=== PATIENT | female | born 1960 | race Caucasian/White ===

== ENCOUNTER 2021-09-23 15:10 | Emergency (ER) | payer BC ==
[2021-09-23] MEDS ORDERED: SODIUM CHLORIDE 1,000 ML IV STA (15:30)
[2021-09-23] MEDS ORDERED: ACETAMINOPHEN 1000 MG/100 ML BAG IVPB ONE (15:30)
[2021-09-23] MEDS ORDERED: METOCLOPRAMIDE HCL INJECTION 10 MG/2 ML VIAL IVPB ONE (15:30)
[2021-09-23 15:35] VITALS: BMI 26.1
[2021-09-23] MEDS ORDERED: METOCLOPRAMIDE HCL INJECTION 10 MG/2 ML VIAL ONE (15:53)
[2021-09-23] MEDS ORDERED: ACETAMINOPHEN INJECTION 100 ML IVPB ONE (15:54)
[2021-09-23 16:25] LABS: ALBUMIN 3.9 g/dl (3.4-5.0); BILIRUBIN,TOTAL 0.8 mg/dl (0.2-1); CALCIUM 9.6 mg/dl (8.5-10); CREATININE 0.6 mg/dl (0.55-1.3); TOT PROT 6.6 g/dl (6.4-8.2)
[2021-09-23 16:26] LABS: HEMOGLOBIN 13.2 G/dL (10.7-15.3); MCH 29.1 pg (25.7-33.7); MCHC 33.9 g/dl (32.0-36.0); MEAN PLT VOLUME 8.4 fl (7.5-11.1); RBC 4.54 10^6/uL (3.60-5.2); RDW 14.7 % (11.6-15.6); WHITE BLOOD COUNT 9.3 10^3/uL (4.0-10.8)
[2021-09-23 16:32] LABS: PLATELET ESTIMATE ADEQUATE
[2021-09-23 16:53] VITALS: BP 147/88; PULSE 59; TEMP 98
== END 2021-09-23 17:28 | disposition home or self-care (01) ==
LOC: FER 15:10
PROC: 3E0333Z Introduction of Anti-inflammatory into Peripheral Vein, Percutaneous Approach (ICD-10-PCS; principal; 2021-09-23)
PROC: 3E033GC Introduction of Other Therapeutic Substance into Peripheral Vein, Percutaneous Approach (ICD-10-PCS; 2021-09-23)
PROC: 3E0337Z Introduction of Electrolytic and Water Balance Substance into Peripheral Vein, Percutaneous Approach (ICD-10-PCS; 2021-09-23)
DX: R51.9 Headache, unspecified (principal)
CPT/HCPCS: 36415; 70450-TC; 80053; 84484; 85027; 99285-25